=== PATIENT | female | born 1970 | race Two or more races ===

== ENCOUNTER 2018-05-01 05:46 | Inpatient (IN) | payer BC ==
[2018-05-01] VITALS (13 sets, daily range): BP systolic 90–122; BP diastolic 40–78
[~2018-05-01] VITALS: Ht 167.6 cm; Wt 56.7 kg
[~2018-05-01 05:46] MED LIST: ASPIR 8181 MG ORAL; CALCIUM600 M1 PO; CELEXA40 MG ORAL; LUNESTA2 MG ORAL
[2018-05-01] MEDS ORDERED: Pantoprazole Inj IVP ONE (06:00)
[2018-05-01] MEDS ORDERED: Vancomycin 1gm/D5W 275ml IVPB ONE ×2 (06:00)
[2018-05-01] MEDS ORDERED: KLONOPIN0.5 MG ORAL (06:40)
[2018-05-01] MEDS ORDERED: fentaNYL 100 mcg/2 mL IV ONE (07:02)
[2018-05-01] MEDS ORDERED: Midazolam 2mg/2ml Inj ONE (07:02)
[2018-05-01] MEDS ORDERED: Lidocaine 1% MPF 10mg/ml 5ml ONE (07:03)
[2018-05-01] MEDS ORDERED: Pantoprazole Inj ONE (07:14)
[2018-05-01] MEDS ORDERED: Thrombin 5000 units spray kit TOPIC ONE (07:14)
[2018-05-01] MEDS ORDERED: Zemuron 50mg/5ml Inj IV ONE (07:15)
[2018-05-01] MEDS ORDERED: Bupivacaine w/Epi 0.5% 30ml Vial INJ ONE (07:15)
[2018-05-01] MEDS ORDERED: Gelfoam Absorbable 1gm powder pkt TOPIC ONE (07:15)
[2018-05-01] MEDS ORDERED: Thrombin 5000 units TOPIC ONE ×2 (07:15→07:17)
[2018-05-01] MEDS ORDERED: Gelfoam Size TOPIC ONE (07:15)
[2018-05-01] MEDS ORDERED: Succinylcholine 20mg/ml 10ml vial ONE (07:15)
[2018-05-01] MEDS ORDERED: Heparin 1000 units/ml 1ml Vial ONE (07:16)
[2018-05-01] MEDS ORDERED: Bacitracin 50000 Units Vial ONE (07:16)
--- NOTE | 2018-05-01 07:51 | Anethesia Preoperative Eval ---
Anesthesia Pre-op PMH/ROS General Date of Evaluation: May 01, 2018 Time of Evaluation: 07:49 Anesthesiologist: Roxanne ASA Score: ASA 2 Mallampati Score Class I : Soft palate, uvula, fauces, pillars visible Class II: Soft palate, uvula, fauces visible Class III: Soft palate, base of uvula visible Class IV: Only hard plate visible Mallampati Classification: Class II Surgeon: Umu Diagnosis: Cervical radiculopathy Surgical Procedure: ACDF Anesthesia History: PONV Family History: no anesthesia problems Allergies: Coded Allergies: No Known Allergies (Unverified , 05/01/18) Medications: see eMAR Patient NPO?: Yes NPO Date: Apr 30, 2018 NPO Time: 2229 Past Medical History Cardiovascular: Denies: HTN, CAD, MD, valve dz, arrhythmia, other Pulmonary: Denies: asthma, COPD, KALIN, other Gastrointestinal/Genitourinary: Reports: GERD - mild; Denies: CRI, ESRD, other Neurologic/Psychiatric: Reports: depression/anxiety, other - chronic pain; Denies: dementia, CVA, TIA Endocrine: Denies: DM, hypothyroidism, steroids, other HEENT: Denies: cataract (L), cataract (R), glaucoma, SELDOVIA (L), SELDOVIA (R), other Hematology/Immune: Denies: anemia, DVT, bleeding disorder, other Musculoskeletal/Integumentary: Denies: OA, RA, DJD, DDD, edema, other PMH Narrative: as above Anesthesia Pre-op Phys. Exam Physician Exam Last Vital Signs Date Time Temp Pulse Resp B/P (MAP) Pulse Ox O2 Delivery O2 Flow Rate FiO2 05/01/18 06:31 97.3 72 18 116/78 (91) 97 05/01/18 06:31 Room Air Constitutional: NAD Neurologic: CN 2-12 intact Cardiovascular: RRR, no M/R/G Respiratory: CTA Gastrointestinal: S/NT/ND Airway Exam Mallampati Score: Class II MO: full Neck: stiff ROM: limited Teeth: intact Dentures: no upper, no lower Anesthesia Pre-op A/P Labs Chemistry Test 05/01/18 06:30 Potassium Level 3.9 MMOL/L (3.5-5.1) Urine Test Test 05/01/18 06:30 Urine HCG, Qualitative Negative (NEGATIVE) Studies Pre-op Studies: EKG - NSR, CXR - WNL Risk Assessment & Plan Assessment: ASA 2 Plan: GA with ETT PONV prevention neuromonitoring Status Change Before Surgery: No Pre-Antibiotics Drug: Vancomycin 1gr. Given Within 1 Hr of Incision: Yes Time Given: 08:20 Bulmaro Oliveira MD May 01, 2018 07:51
[2018-05-01] MEDS ORDERED: Sterile Water Irrig 1000ml IRRIG ONE (08:00)
[2018-05-01] MEDS ORDERED: NS Irrig 1000ml ONE (08:00)
[2018-05-01] MEDS ORDERED: Propofol 1,000mg/ 100ml btl IV ONE (08:00)
[2018-05-01] MEDS ORDERED: LR 1000ml ONE (08:00)
--- NOTE | 2018-05-01 08:07 | Pre-Procedure Note/Attestation ---
Pre-Procedure Note/Attestation Complete Prior to Procedure Planned Procedure: bilateral Indications for Procedure Pre-Operative Diagnosis: Anterior cervical disectomy with interbody fusion and stabilization and use of allograft, and autograft for cervical five and six. Attestation I attest that I discussed the nature of the procedure; its benefits; risks and complications; and alternatives (and the risks and benefits of such alternatives ), prior to the procedure, with the patient (or the patient's legal member services representative). I attest that, if there was a reasonable possibility of needing a blood transfusion, the patient (or the patient's legal member services representative) was given the [place] [employer] standardized written summary, pursuant to the Philip Ruso Blood Safety Act ([place] Health and Safety Code # 1645, as amended). I attest that I re-evaluated the patient just prior to the surgery and that there has been no change in the patient's H&P, except as documented below: Francis Sanz MD May 01, 2018 08:07
[2018-05-01] MEDS ORDERED: ePHEDrine 50mg/ml Inj ONE (08:42)
[2018-05-01] MEDS ORDERED: Sodium Chloride 10ml vial INJ ONE (08:42)
[2018-05-01] MEDS ORDERED: Morphine Sulfate 10mg/ml Inj ONE (08:46)
[2018-05-01] MEDS ORDERED: Glycopyrrolate 0.2mg/ml 1ml Vial ONE (08:53)
[2018-05-01] MEDS ORDERED: Ketorolac 30mg Inj ONE (08:54)
[2018-05-01] MEDS ORDERED: LR 1000ml 1,000 ML IVLG SCH (09:05)
[2018-05-01] MEDS ORDERED: Acetaminophen (Non formulary) 100 ML IV ONE (09:15)
[2018-05-01] MEDS ORDERED: Ketorolac 30mg Inj IV PRN (09:15)
[2018-05-01] MEDS ORDERED: Metoclopramide 10mg/2ml Inj IVP PRN (09:15)
[2018-05-01] MEDS ORDERED: DiphenhydrAMINE 50mg/ml Inj IVP PRN (09:15)
[2018-05-01] MEDS ORDERED: Meperidine 50mg/ml Inj(FOR RIGORS ONLY) IV PRN (09:15)
[2018-05-01] MEDS ORDERED: Midazolam 2mg/2ml Inj IVP PRN (09:15)
[2018-05-01] MEDS ORDERED: fentaNYL 100 mcg/2 mL IV PRN (09:15)
[2018-05-01] MEDS ORDERED: Metoprolol 5mg/5ml Inj ONE (09:31)
--- NOTE | 2018-05-01 10:35 | Immediate Post-Op Evaluation ---
Immediate Post-Op Evalulation Immediate Post-Op Evalulation Procedure: ACDF C5-C6 Date of Evaluation: May 01, 2018 Time of Evaluation: 10:34 IV Fluids: 800 Blood Products: none Estimated Blood Loss: min Urinary Output: none Blood Pressure Systolic: 96 Blood Pressure Diastolic: 54 Pulse Rate: 67 Respiratory Rate: 20 O2 Sat by Pulse Oximetry: 99 Temperature (Fahrenheit): 97.8 Pain Score (1-10): 1 Nausea: No Vomiting: No Complications NONE Patient Status: reacts, patent, extubated, none Hydration Status: adequate Bulmaro Oliveira MD May 01, 2018 10:35
--- NOTE | 2018-05-01 10:42 | Brief Operative Note ---
Immediate Post Operative Note Operative Note Chief Complaint: neck pain and upper extremity radiculopathy Pre-op Diagnosis: 1. Herniated disc C5-6 with axial neck pain and radiculopathy 2. Lack of improvement from conservative care and cervical epidurals 3. History of osteoporosis Procedure: 1. Right sided retropharyngeal approach to the cervical spine 2. Complete discectomy C5-6 level with bilateral neuroanatomy and preparation of disc space. 3. Insertion of 7 mm PEEK-Ti cage ALIZE-C and fixation with 11 mm blades. 4. Microdissection using operative microscope. 5. Arthrodesis anterior approach 6. Intra-op supervision, use and interpretation of fluoroscopy for localization and instrumentation of spine 7. Intra-op neuromonitoring upper and lower SSEPs, EMGs and dermatomals 8. [place] of local bone from vertebral body for grafting 9. Plastic surgical closure of cervical 4 -cm wound Post-op Diagnosis: same as pre-op Findings: consistent w/pre-op dx studies Surgeon: Francis Sanz M.D. Table Operator: Polo Muhammad M.D. Anesthesiologist: Dr. Penny Anesthesia: general Specimen: yes - disc for gross exam Complications: none Condition: stable Fluids: 600 cc crystalloids Estimated Blood Loss: minimal Drains: none Implant(s) used?: Yes - ALIZE-C PEEK-Ti Francis Sanz MD May 01, 2018 10:42
[2018-05-01] MEDS ORDERED: Milk of Magnesia 30ml Ud ORAL PRN (11:15)
[2018-05-01] MEDS ORDERED: HYDROcodone/Acetamin 7.5/325 tab ORAL PRN (11:15)
--- NOTE | 2018-05-01 11:16 | General Progress Note ---
Progress Note Progress Note Neurosurgery Postop S/ Comfortable no arm pain. Minor sore throat O/ Vs. Last 24 Hour Vital Signs Date Time Temp Pulse Resp B/P (MAP) Pulse Ox O2 Delivery O2 Flow Rate FiO2 05/01/18 10:50 83 17 109/63 100 Nasal Cannula 3 05/01/18 10:40 86 16 95/67 100 Nasal Cannula 3 05/01/18 10:35 67 20 99 05/01/18 10:30 65 14 90/40 100 Simple Mask 6 05/01/18 10:22 97.7 66 20 98/46 100 Simple Mask 6 05/01/18 06:31 97.3 72 18 116/78 (91) 97 05/01/18 06:31 Room Air Alert and oriented x 4 Moves all extremities well dressing dry in c-collar doing well Transfer to floor when cleared by recovery room Family updated Francis Sanz MD May 01, 2018 11:16
[2018-05-01] MEDS: HYDROmorphone 1mg/ml Carpuject IVP PRN ×4 (12:18→19:42)
[2018-05-01] MEDS ORDERED: NS w/KCl 20mEq 1,000 ML IV SCH (13:00)
[2018-05-01] MEDS: ceFAZolin 2gm/50ml Premix 50 ML IV SCH ×2 (13:56→21:32)
[2018-05-01] MEDS: HYDROcodone/Acetamin 7.5/325 tab ORAL PRN ×2 (13:58→22:15)
--- NOTE | 2018-05-01 14:08 | Diagnostic Imaging Report ---
Indication: Neck Pain Findings: 4 fluoroscopic views of the cervical spine were obtained. Intraoperative imaging showing anterior fusion at C5-6 discectomy and disc replacement. IMPRESSION: Intraoperative imaging
[2018-05-01] MEDS: Docusate 100mg cap ORAL SCH (17:12)
[2018-05-01] MEDS: Docusate Sod/Senna tab ORAL SCH (17:12)
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
[2018-05-02] VITALS: BP 94/54
[2018-05-02 04:00] VITALS: BP 105/68
[2018-05-02] MEDS: HYDROcodone/Acetamin 7.5/325 tab ORAL PRN ×4 (04:01→18:35)
[2018-05-02] MEDS: ceFAZolin 2gm/50ml Premix 50 ML IV SCH (05:00)
[2018-05-02 08:00] VITALS: BP 125/67
[2018-05-02] MEDS: Docusate Sod/Senna tab ORAL SCH ×2 (08:36→18:35)
[2018-05-02] MEDS: Docusate 100mg cap ORAL SCH ×2 (08:36→18:36)
[2018-05-02 08:58] LABS: ANION GAP 9 mmol/L (5-15); BLOOD UREA NITROGEN 6 mg/dL (7-18); CALCIUM 8.8 MG/DL (8.5-10.1); CARBON DIOXIDE 28 MMOL/L (21-32); CHLORIDE 106 MMOL/L (98-107); CREATININE 0.7 MG/DL (0.55-1.30); POTASSIUM 3.8 MMOL/L (3.5-5.1); SODIUM 143 MMOL/L (136-145)
[2018-05-02] MEDS ORDERED: Citalopram Hydrobromide 10mg Tab ORAL SCH (09:00)
--- NOTE | 2018-05-02 09:53 | 48 Hour Post Anesthesia Eval ---
Post Anesthesia Evaluation Procedure: ACDF C5-C6 Date of Evaluation: May 02, 2018 Time of Evaluation: 09:52 Blood Pressure Systolic: 105 0: 74 Pulse Rate: 68 Respiratory Rate: 20 Temperature (Fahrenheit): 97.6 O2 Sat by Pulse Oximetry: 98 Airway: patent Nausea: No Vomiting: No Pain Intensity: 2 Hydration Status: adequate Cardiopulmonary Status: stable Mental Status/LOC: patient returned to baseline Follow-up Care/Observations: n/a Post-Anesthesia Complications: none Follow-up care needed: N/A Bulmaro Oliveira MD May 02, 2018 09:53
[2018-05-02 12:00] VITALS: BP 130/80
[2018-05-02] MEDS ORDERED: Cyclobenzaprine 10mg Tab ORAL PRN (15:30)
[2018-05-02 16:00] VITALS: BP 126/77
--- NOTE | 2018-05-02 18:06 | General Progress Note ---
Progress Note Progress Note Neurosurgery S/ Ambulated several times. Left arm pain much improved. Tolerating po's. Minimal to no sore throat. O/ VS Last 24 Hour Vital Signs Date Time Temp Pulse Resp B/P (MAP) Pulse Ox O2 Delivery O2 Flow Rate FiO2 05/02/18 14:00 98.2 05/02/18 12:00 98.2 65 18 130/80 (97) 97 05/02/18 09:53 68 20 98 05/02/18 09:00 Room Air 05/02/18 08:00 98.1 77 18 125/67 (86) 96 05/02/18 04:00 97.8 69 18 105/68 (80) 99 05/02/18 00:00 97.9 60 20 94/54 (67) 99 05/01/18 21:43 Nasal Cannula 3.0 05/01/18 20:00 98.0 59 20 109/63 (78) 99 Exam incision s clean, dry and itact. Moves all extremities well normal sensation. Normal voice Dressing intact and cleanCervical collar. labs Laboratory Tests Test 05/02/18 08:26 Sodium Level 143 MMOL/L (136-145) Potassium Level 3.8 MMOL/L (3.5-5.1) Chloride Level 106 MMOL/L (98-107) Carbon Dioxide Level 28 MMOL/L (21-32) Anion Gap 9 mmol/L (5-15) Blood Urea Nitrogen 6 mg/dL (7-18) L Creatinine 0.7 MG/DL (0.55-1.30) Estimat Glomerular Filtration Rate > 60 mL/min (>60) Glucose Level 128 MG/DL (74-106) H Calcium Level 8.8 MG/DL (8.5-10.1) Magnesium Level 1.9 MG/DL (1.8-2.4) doing well D/c planning. D/c instructions reviewed with pt, and nursing. Francis Sanz MD May 02, 2018 18:06
[2018-05-02] MEDS ORDERED: HYDROCODON-ACE1 EA13 ORAL (18:20)
[2018-05-02] MEDS ORDERED: CYCLOBENZAPRINE5 MG ORAL (18:22)
[2018-05-02] MEDS ORDERED: [UNRECOGNIZED DRUG - OTHER] NS (18:27)
[2018-05-02] MEDS ORDERED: Tubing IV Secondary IV ONE (19:02)
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
== END 2018-05-02 19:03 | disposition home or self-care (01) | DRG 473 ==
LOC: SDSOVERFLO 05:46 → 3E 11:50
DX: M50.122 Cervical disc disorder at C5-C6 level with radiculopathy (principal); V89.2XXS Person injured in unspecified motor-vehicle accident, traffic, sequela; M81.0 Age-related osteoporosis without current pathological fracture; Z85.3 Personal history of malignant neoplasm of breast; K21.9 Gastro-esophageal reflux disease without esophagitis
CPT/HCPCS: 36415; 72040; 76001; 80048; 81025; 83735; 84132; 86850; 86900; 86901; 87081; 94003; 94150; C9399; J2250; J2405